=== PATIENT | male | born 1950 | race Caucasian/White ===

== ENCOUNTER 2023-01-10 07:30 | Outpatient (RCR) | payer MEDICARE, BC, SELFPAY | END 2023-01-10 09:08 | disposition home or self-care (01) | PROVIDERS: PCP Family Medicine; Visit Provider Orthopaedic Surgery | DX: M25.562 Pain in left knee (principal); Z51.89 Encounter for other specified aftercare | CPT/HCPCS: 97110 ==

== ENCOUNTER 2023-02-20 08:00 | Outpatient (RCR) | payer MEDICARE, BC, SELFPAY ==
--- NOTE | 2023-01-20 17:56 | OT.OPOE ---
OT Outpatient Ortho Eval OT Outpatient Ortho Eval Start: 01/20/23 07:30 Freq: Status: Active Protocol: Document 01/20/23 07:30 AMB (Rec: 01/20/23 17:49 AMB [id number]) E-signed By Cecilia Chanel, OTR/L, CLT, BOOM SUPERVISOR OT OP Ortho Eval Details Type Type Eval Complexity Low Insurance Information Insurance Information Medicare B Outpatient History/Precautions Current Condition/Medical Diagnosis Referring Provider Dr [place] Treatment Diagnosis LUE wrist OA Date of Onset Chronis Medical Conditions HTN,Metal Implants,Arthritis Other Conditions PMH includes CTR of RUE wrist in 2020, LLE STACI in 2013 with multiple revisions, most recent in 2016, BLE TKA. Medications include amlodipine , amoxicillin, atorvastatin, lisinopril, metoprolol, pantoprazole, and spironolactone. Medical/Functional History Medical History Reviewed Yes Social History Current Occupation [employer], has cattle Critical Job Demands Pull,Lift,Overhead Reach Hobbies Farming Oriented Mental Status No Concerns Ortho Subjective Subjective Subjective Pt states he's been having pain in his wrist for years, states he did fall on his left hand several years ago, wonders if that has something to do with it. Pt states he has increased pain with nailing / hammering, pulling straps on hay bails (pain and weak), opening bottles, lifting, twisting, basically just using it for heavy things . Pt states he does not have constant pain but when it hurts, it interrupts his day. Pt states he hasn't really found anything to help his pain except to rest it when it hurts. Pt also uses [place] Gel, states it's a muscle rub and that does help some. Pt states his average pain is a 1 /10 but can be worse than that depending on what he is doing . Pain Assessment Pain Present Pain Present Pain Reported Location Wrist Description Sharp,Dull, Achy,Throbbing Intensity 1 Wrist Goniometric Wrist Left Active Flexion (70-90 degrees) 40 L Active Extension (60-70 degrees) 40 L Active Ulnar Deviation (20-30 degrees) 15 L Active Radial Deviation (15-20 degrees) 20 ROM Limitations Soft Tissue Tightness,Pain Goniometric Comments Goniometric Comments Goniometric Comments 01/20/23 Pt demonstrates AROM of the forearm and hand to be WNL, pronation and supination are tight at EROM. Hand Pinch/Tool Design Engineer Strength Hand Right Tool Design Engineer Strength Position 1 (lbs) 69 Lateral Pinch Strength (lbs) 17 Three Point Pinch (lbs) 13 Left Tool Design Engineer Strength Position 1 (lbs) 36 Lateral Pinch Strength (lbs) 18 Three Point Pinch (lbs) 11 Edema Assessment Additional Information Comments 01/20/23 Pt does have a soft but large bump on the volar wrist, feels like fluid, but does not feel like ganglion? Pt states it's been there for years. OT Objective Data Hand Hand Dominance Left Sensation Sensation Assessment Summary Comments 01/20/23 Pt denies any paresthesia. OT Problems Problems Problems Decreased Strength,Decreased Range of Motion,Lifting, Gripping,Pinching Other Problems Writing,Opening Containers, Dressing,Fasteners Patient Potential Good Assessment Assessment Assessment Pt presents to OT with pain, weakness and limited AROM of the LUE wrist. Per MD report, X-Rays indicate severe bone- on-bone joint space loss radiocarpal articulation and ulnar carpal articulation. DRUJ has minimal joint space with erosion of the scaphoid and lunate into the distal radius. Subchondral sclerosis , osteophytes are also evident . Pt will benefit from skilled OT intervention for splinting , pt education regarding joint protection techniques, modalities for inflammation and TE for ROM and strengthening / joint support. OT Outpatient Treatment Plan Ortho Barriers Barriers to Goal Attainment Severe OA in wrist, fusion has been recommended pt wanting to try OT first. Occupational Therapy Treatment Plan - OP Potential Rehabilitation Potential Good Set Goals Goals Set with Patient Yes Goals Goals 1. Pt will be independent and compliant with HEP in order to resume full, pain-free use of the involved UE. 3 weeks 2. Pt will demonstrate full, pain-free AROM of the involved UE in order to improve ability to grasp and hold. 6 weeks 3. Pt will demonstrate pain- free tallow pumper and pinch strength comparable to the uninvolved side in order to improve functional grasp, hold, reach, and lifting ability needed to complete self-care, leisure tasks, and work activities. 8 weeks. Target Date 04/19/23 Progress set Treatment Plan Treatment Plan Evaluation,Edema Control, Iontophoresis,Joint Mobilization,Manual Therapy, Splinting,Ultrasound, Therapeutic Exercise, Therapeutic Activities,Self- Care/Home Management,Education Expected Frequency 1-2x Week Expected Duration 8-10 Weeks Certification Certification I Certify That: Therapy Services Provided, Therapy Plan Established, Therapy Plan Reviewed Recertification Information Recertification Information Initial Certification Date 01/20/23 Recertification Due Date 04/20/23 Reasons to Continue Skilled Therapy Initiating OT today (01/20/23) for severe OA of the LUE wrist with focus on pain management , joint protection, ROM, and strengthening. Rehabilitation Potential good Continued Plan of Care and Interventions See above Provider Signature Shows Agreement With POC & Medical Necessity Physician Comment/Change Comment or Changes Physician NPI Number #
== END 2023-06-15 23:59 | disposition home or self-care (01) ==
PROVIDERS: PCP Family Medicine; Visit Provider Orthopaedic Surgery Sports Medicine
DX: M19.032 Primary osteoarthritis, left wrist (principal); Z51.89 Encounter for other specified aftercare
CPT/HCPCS: 97035; 97110; 97140; 97165; X5282